=== PATIENT | male | born 1945 | race Caucasian/White ===

== ENCOUNTER 2017-12-27 09:17 | Day surgery (SDC) | payer MEDICARE, OTHER ==
[~2017-12-27] VITALS: Ht 170.2 cm; Wt 105.2 kg
[~2017-12-27 09:17] MED LIST: ASPI81CH PO; ATOR40TA PO; CARV25 PO; FENO54 PO; FURO20 PO; INSULANPEN SC; ROSU10TA PO; RXHYDACE PO; SITA50T2 PO; ZESTORETIC 20-121 EA PO; Zithromax250 MG PO
== END 2017-12-27 23:03 | disposition home or self-care (01) ==
LOC: ORSCMMR 09:17 → ORD 10:30 → ORSCMMR 23:03
PROVIDERS: Internal Medicine Gastroenterology
PROC: 0DBH8ZX Excision of Cecum, Via Natural or Artificial Opening Endoscopic, Diagnostic (ICD-10-PCS; principal; 2017-12-27 10:30)
PROC: 0DBM8ZX Excision of Descending Colon, Via Natural or Artificial Opening Endoscopic, Diagnostic (ICD-10-PCS; principal; 2017-12-27 10:30)
PROC: 0DBN8ZX Excision of Sigmoid Colon, Via Natural or Artificial Opening Endoscopic, Diagnostic (ICD-10-PCS; principal; 2017-12-27 10:30)
DX: K62.5 Hemorrhage of anus and rectum (principal); D12.4 Benign neoplasm of descending colon; D12.0 Benign neoplasm of cecum; D12.5 Benign neoplasm of sigmoid colon; K57.30 Diverticulosis of large intestine without perforation or abscess without bleeding; K21.9 Gastro-esophageal reflux disease without esophagitis; K63.89 Other specified diseases of intestine; Z86.010 Personal history of colon polyps; I25.10 Atherosclerotic heart disease of native coronary artery without angina pectoris; E11.9 Type 2 diabetes mellitus without complications; Z87.891 Personal history of nicotine dependence; Z79.82 Long term (current) use of aspirin; Z79.899 Other long term (current) drug therapy
CPT/HCPCS: 82947; J7120

== ENCOUNTER 2018-02-06 06:00 | Day surgery (SDC) | payer MEDICARE, OTHER ==
[~2018-02-06] VITALS: Ht 175.3 cm; Wt 105.0 kg
[~2018-02-06 06:00] MED LIST changes: +AMLO5 PO; +FISH OIL 1,0001 EAC1 PO; +NITR.4SL SL; +NITR.8TP TOP; +OMEPRAZOLE MAGN20 MG PO; +RANO500T PO
[2018-02-07] MEDS ORDERED: CLOP75 PO (11:54)
[2018-02-07] MEDS ORDERED: ASPI325 PO (11:54)
[2018-02-07] MEDS ORDERED: Protonix40 MG PO (11:55)
== END 2018-02-07 12:31 | disposition home or self-care (01) ==
LOC: MHTC 06:00 → PCU 13:20 → MHTC 02-07 12:31
PROC: B2111ZZ Fluoroscopy of Multiple Coronary Arteries using Low Osmolar Contrast (ICD-10-PCS; principal; 2018-02-06)
PROC: 027034Z Dilation of Coronary Artery, One Artery with Drug-eluting Intraluminal Device, Percutaneous Approach (ICD-10-PCS; principal; 2018-02-06)
PROC: 02703DZ Dilation of Coronary Artery, One Artery with Intraluminal Device, Percutaneous Approach (ICD-10-PCS; principal; 2018-02-06)
PROC: 4A023N7 Measurement of Cardiac Sampling and Pressure, Left Heart, Percutaneous Approach (ICD-10-PCS; principal; 2018-02-06)
DX: I25.119 Atherosclerotic heart disease of native coronary artery with unspecified angina pectoris (principal); E11.9 Type 2 diabetes mellitus without complications; Z79.4 Long term (current) use of insulin; I10 Essential (primary) hypertension; E78.00 Pure hypercholesterolemia, unspecified; E66.9 Obesity, unspecified; Z95.1 Presence of aortocoronary bypass graft
CPT/HCPCS: 82947; 85347; 92928; 92978; 99152; 99153; C1725; C1753; C1760; C1769; C1874; C1876; C1887; C9600; J1644; J2250; J3010; J7030; Q9967

== ENCOUNTER 2019-03-25 07:37 | Day surgery (SDC) | payer MEDICARE, OTHER ==
[~2019-03-25] VITALS: Ht 162 cm; Wt 106.4 kg
[~2019-03-25 07:37] MED LIST changes: +ASPI325 PO; +CLOP75 PO; +Protonix40 MG PO
[2019-03-25] MEDS ORDERED: Nitroglycerin1 EACH TOP (08:15)
[2019-03-25] MEDS ORDERED: LISI5 PO (08:17)
[2019-03-25] MEDS ORDERED: RANO500T PO (08:23)
--- NOTE | 2019-03-25 08:41 | NUR ---
03/25/19 0841 Yesika Torres History, Chart, Medications and Allergies reviewed before start of procedure. Patient confirms NPO status and agrees with scheduled surgery. PATIENT DETERMINED TO BE ASA APPROPRIATE FOR PROPOFOL SEDATION PRIOR TO START OF PROCEDURE BY DR. HILLMAN. 3-LEAD EKG REVIEWED WITH PHYSICIAN PRIOR TO START OF PROCEDURE. MONITOR INTACT WITH CONTINUOUS PULSE OXIMETRY AND INTERMITTENT BP.
--- NOTE | 2019-03-25 09:08 | NUR ---
PT TO STEP. DENIES C/O PAIN OR NAUSEA. WATER GIVEN TO PT.
--- NOTE | 2019-03-25 09:21 | NUR ---
WRITTEN AND VERBAL D/C INSTRUCTIONS GIVEN TO PT WITH STATED UNDERSTANDING.
== END 2019-03-25 09:47 | disposition home or self-care (01) ==
LOC: ORSCMMR 07:37 → ORD 08:30 → ORSCMMR 08:30
PROVIDERS: Internal Medicine Gastroenterology
PROC: 0DB68ZX Excision of Stomach, Via Natural or Artificial Opening Endoscopic, Diagnostic (ICD-10-PCS; principal; 2019-03-25 08:30)
PROC: 0DB98ZX Excision of Duodenum, Via Natural or Artificial Opening Endoscopic, Diagnostic (ICD-10-PCS; principal; 2019-03-25 08:30)
DX: K92.1 Melena (principal); K29.70 Gastritis, unspecified, without bleeding; K44.9 Diaphragmatic hernia without obstruction or gangrene; D64.9 Anemia, unspecified; E11.9 Type 2 diabetes mellitus without complications; I25.10 Atherosclerotic heart disease of native coronary artery without angina pectoris; Z87.891 Personal history of nicotine dependence; Z79.01 Long term (current) use of anticoagulants; Z79.899 Other long term (current) drug therapy
CPT/HCPCS: 82947; 88305; 88342; J2704; J7120

== ENCOUNTER → 2022-01-18 | Outpatient (CLI) | payer MEDICARE, OTHER ==
[~2022-01-18] MED LIST changes: +LISI5 PO; +Nitroglycerin1 EACH TOP
== END | disposition home or self-care (01) ==
LOC: LAB SHORT 14:49
DX: C44.519 Basal cell carcinoma of skin of other part of trunk (principal)
CPT/HCPCS: 88305

== ENCOUNTER 2022-07-26 07:12 | Day surgery (SDC) | payer MEDICARE, OTHER ==
[~2022-07-26] VITALS: Ht 170.2 cm; Wt 99.8 kg
[2022-07-26] VITALS (12 sets, daily range): BP systolic 106–160; BP diastolic 55–130
--- NOTE | 2022-07-26 07:56 | NUR ---
Ambulatory in Day Surgery History, Chart, Medications and Allergies reviewed before start of procedure. Pre-Op teaching done. Pt verbalizes understanding. Patient States Post-Procedure ride home has been arranged.
--- NOTE | 2022-07-26 08:11 | NUR ---
07/26/22 0811 Sandra Tiwari HISTORY, CHART, MEDICATIONS AND ALLERGIES REVIEWED BEFORE START OF PROCEDURE. PATIENT CONFIRMS NPO STATUS AND AGREES WITH SCHEDULED PROCEDURE. 3-LEAD EKG REVIEWED WITH PHYSICIAN PRIOR TO START OF PROCEDURE. MONITOR INTACT WITH CONTINUOUS PULSE OXIMETRY,CAPNOGRAPHY, 3-LEAD EKG, INTERMITTENT BP. SUPPLEMENTAL O2 TO BE TITRATED THROUGHOUT PROCEDURE TO MAINTAIN O2 SATURATION ABOVE 90%. PATIENT DETERMINED TO BE ASA APPROPRIATE FOR PROPOFOL SEDATION PRIOR TO START OF PROCEDURE BY .
--- NOTE | 2022-07-26 08:31 | NUR ---
Discharge instructions reviewed with patient. Patient verbalizes understanding. Copy given to patient to take home. Discharged via wheelchair to private car for ride home. PROCEDURE ABORTED DUE TO INADEQUATE PREP; MD CONSULTED WITH PT, PT CALM & UNDERSTANDING.
== END 2022-07-26 08:47 | disposition home or self-care (01) ==
LOC: ORSCMMR 07:12 → ORD 08:30 → ORSCMMR 08:30
PROVIDERS: Internal Medicine Gastroenterology
PROC: 0DJD8ZZ Inspection of Lower Intestinal Tract, Via Natural or Artificial Opening Endoscopic (ICD-10-PCS; principal; 2022-07-26 08:30)
DX: K62.5 Hemorrhage of anus and rectum (principal); Z86.010 Personal history of colon polyps; K57.30 Diverticulosis of large intestine without perforation or abscess without bleeding; I25.10 Atherosclerotic heart disease of native coronary artery without angina pectoris; I10 Essential (primary) hypertension; E11.9 Type 2 diabetes mellitus without complications; Z87.891 Personal history of nicotine dependence; Z79.02 Long term (current) use of antithrombotics/antiplatelets; Z79.4 Long term (current) use of insulin; Z79.899 Other long term (current) drug therapy
CPT/HCPCS: 82947; J2704; J7120

== ENCOUNTER 2022-08-30 08:36 | Day surgery (SDC) | payer MEDICARE, OTHER ==
[2022-08-30] VITALS (23 sets, daily range): BP systolic 106–175; BP diastolic 60–91
[~2022-08-30] VITALS: Ht 175.3 cm; Wt 97.8 kg
[2022-08-30] MEDS ORDERED: CLOP75 PO ×2 (09:28→09:29)
--- NOTE | 2022-08-30 09:52 | NUR ---
Ambulatory in Day SurgeryBair Paws warming gown applied. History, Chart, Medications and Allergies reviewed before start of procedure.Lungs clear T/O to Auscultation. Patient confirms NPO status and agrees with scheduled surgery. Pre-Op teaching done. Pt verbalizes understanding. Patient states colon prep results clear. Patient States Post-Procedure ride home has been arranged.
--- NOTE | 2022-08-30 09:55 | NUR ---
08/30/22 0955 Anshul Johnson HISTORY, CHART, MEDICATIONS AND ALLERGIES REVIEWED BEFORE START OF PROCEDURE. PATIENT CONFIRMS NPO STATUS AND AGREES WITH SCHEDULED PROCEDURE. 3-LEAD EKG REVIEWED WITH PHYSICIAN PRIOR TO START OF PROCEDURE. MONITOR INTACT WITH CONTINUOUS PULSE OXIMETRY,CAPNOGRAPHY, 3-LEAD EKG, INTERMITTENT BP. SUPPLEMENTAL O2 TO BE TITRATED THROUGHOUT PROCEDURE TO MAINTAIN O2 SATURATION ABOVE 90%. PATIENT DETERMINED TO BE ASA APPROPRIATE FOR PROPOFOL SEDATION PRIOR TO START OF PROCEDURE BY DR. HILLMAN.
--- NOTE | 2022-08-30 10:39 | NUR ---
PT UP INBED TOLERING PO FLUIDS. REPORT RECIEVED. VSS ON ROOM AIR. DR HILLMAN AT BEDSIDE
--- NOTE | 2022-08-30 11:00 | NUR ---
Patient up to Ambulate independently. Gait steady. Discharge instructions reviewed with patient. Patient verbalizes understanding. Copy given to patient to take home. Discharged via wheelchair to private car for ride home.
== END 2022-08-30 11:03 | disposition home or self-care (01) ==
LOC: ORSCMMR 08:36 → ORD 09:30 → ORSCMMR 09:30
PROVIDERS: Internal Medicine Gastroenterology
PROC: 0DBH8ZX Excision of Cecum, Via Natural or Artificial Opening Endoscopic, Diagnostic (ICD-10-PCS; principal; 2022-08-30 09:30)
PROC: 0DBK8ZX Excision of Ascending Colon, Via Natural or Artificial Opening Endoscopic, Diagnostic (ICD-10-PCS; principal; 2022-08-30 09:30)
PROC: 0DBL8ZX Excision of Transverse Colon, Via Natural or Artificial Opening Endoscopic, Diagnostic (ICD-10-PCS; principal; 2022-08-30 09:30)
DX: K62.5 Hemorrhage of anus and rectum (principal); Z86.010 Personal history of colon polyps; D12.3 Benign neoplasm of transverse colon; D12.2 Benign neoplasm of ascending colon; K63.5 Polyp of colon; K57.30 Diverticulosis of large intestine without perforation or abscess without bleeding; E11.9 Type 2 diabetes mellitus without complications; I25.10 Atherosclerotic heart disease of native coronary artery without angina pectoris; Z79.899 Other long term (current) drug therapy; Z79.02 Long term (current) use of antithrombotics/antiplatelets; Z79.4 Long term (current) use of insulin; Z87.891 Personal history of nicotine dependence; E66.9 Obesity, unspecified; Z68.35 Body mass index [BMI] 35.0-35.9, adult
CPT/HCPCS: 82947; 88305; J2704; J7120

== ENCOUNTER → 2023-01-19 | Outpatient (CLI) | payer MEDICARE, OTHER | END | disposition home or self-care (01) | LOC: LAB SHORT 14:26 → LAB 14:26 | DX: C44.41 Basal cell carcinoma of skin of scalp and neck (principal) | CPT/HCPCS: 88305 ==

== ENCOUNTER 2023-11-27 07:39 | Day surgery (SDC) | payer MEDICARE, OTHER ==
[2023-11-27] VITALS (17 sets, daily range): BP systolic 113–186; BP diastolic 57–91
[~2023-11-27] VITALS: Ht 167.6 cm; Wt 94.0 kg
[~2023-11-27 07:39] MED LIST changes: +INSULANI SC; +Lactated Ringer's 1,000 ML IV SCH
--- NOTE | 2023-11-27 08:12 | NUR ---
History, Chart, Medications and Allergies reviewed before start of procedure. Patient confirms NPO status and agrees with scheduled surgery. Patient states colon prep results clear. Lungs clear T/O to Auscultation. Patient States Post-Procedure ride home has been arranged. Pre-Op teaching done. Pt verbalizes understanding.
[2023-11-27] MEDS ORDERED: propofoL 40 ML IV ONE (08:37)
--- NOTE | 2023-11-27 08:47 | NUR ---
11/27/23 0847 Yesika Torres CONFIRMED AND REVIEWED H&P, MEDCICATIONS, ALLERGIES, MEDICAL HISTORY, RESPIRATORY HISTORY, VITAL SIGNS, 3-LEAD EKG, CONSENTS, AND PHYSICIAN ORDERS. PATIENT CONFIRMS NPO STATUS AND AGREES WITH SCHEDULED PROCEDURE. MONITOR INTACT WITH CONTINUOUS PULSE OXIMETRY, CAPNOGRAPHY, 3-LEAD EKG, INTERMITTENT BP. SUPPLEMENTAL O2 TO BE TITRATED THROUGHOUT PROCEDURE TO MAINTAIN O2 SATURATION ABOVE 90%. PATIENT DETERMINED TO BE ASA APPROPRIATE FOR PROPOFOL SEDATION PRIOR TO START OF PROCEDURE BY DR. HILLMAN. MALLAMPATI CLASS 2 AIRWAY: COMPLETE VISUALIZATION OF THE UVULA.
--- NOTE | 2023-11-27 09:42 | NUR ---
Discharge instructions reviewed with patient. Patient verbalizes understanding. Copy given to patient to take home. Patient States Post-Procedure ride home has been arranged. Discharged via wheelchair to private car for ride home.
== END 2023-11-27 09:40 | disposition home or self-care (01) ==
LOC: ORSCMMR 07:39 → ORD 08:30 → ORSCMMR 08:30
PROVIDERS: Internal Medicine Gastroenterology
PROC: 0DBK8ZX Excision of Ascending Colon, Via Natural or Artificial Opening Endoscopic, Diagnostic (ICD-10-PCS; principal; 2023-11-27 08:30)
PROC: 0DBL8ZX Excision of Transverse Colon, Via Natural or Artificial Opening Endoscopic, Diagnostic (ICD-10-PCS; principal; 2023-11-27 08:30)
PROC: 0DBM8ZX Excision of Descending Colon, Via Natural or Artificial Opening Endoscopic, Diagnostic (ICD-10-PCS; principal; 2023-11-27 08:30)
DX: D12.2 Benign neoplasm of ascending colon (principal); D12.3 Benign neoplasm of transverse colon; D12.4 Benign neoplasm of descending colon; K57.30 Diverticulosis of large intestine without perforation or abscess without bleeding; K64.8 Other hemorrhoids; I25.10 Atherosclerotic heart disease of native coronary artery without angina pectoris; E11.9 Type 2 diabetes mellitus without complications; Z86.0101 Personal history of adenomatous and serrated colon polyps; Z86.16 Personal history of COVID-19; Z79.02 Long term (current) use of antithrombotics/antiplatelets; Z79.4 Long term (current) use of insulin; Z79.899 Other long term (current) drug therapy; Z87.891 Personal history of nicotine dependence
CPT/HCPCS: 82947; 88305; J2704; J7120

== ENCOUNTER 2024-05-10 07:20 | Day surgery (SDC) | payer MEDICARE, OTHER ==
[~2024-05-10] VITALS: Ht 170.2 cm; Wt 97.3 kg
[~2024-05-10 07:20] MED LIST changes: -Lactated Ringer's 1,000 ML IV SCH
[2024-05-10] MEDS ORDERED: CARVEDILOL25 M9 (07:28)
[2024-05-10] MEDS ORDERED: CLOP75 (07:29)
[2024-05-10] MEDS ORDERED: ASCO500 (07:31)
[2024-05-10] MEDS ORDERED: ATOR40TA (07:31)
[2024-05-10] MEDS ORDERED: MULVITA (07:31)
[2024-05-10] MEDS ORDERED: propofoL 50 ML IV ONE ×2 (07:37→09:02)
[2024-05-10] MEDS ORDERED: Lactated Ringer's 1,000 ML IV ONE ×2 (07:37→07:55)
--- NOTE | 2024-05-10 08:00 | NUR ---
05/10/24 0800 Shi Wheeler DRAWING CBD PER MD HILLMAN PRIOR TO PROCEDURE.
[2024-05-10 08:31] LABS: BASOPHILS ABSOLUTE AUTO 0.02 K/mm3 (0.00-0.23); BASOPHILS PERCENT AUTO 0 % (0-2); EOSINOPHILS ABSOLUTE AUTO 0.08 K/mm3 (0.00-0.68); EOSINOPHILS PERCENT AUTO 2 % (0-6); Hematocrit 37.6 % (37.0-53.0); Hemoglobin 12.8 g/dL (13.5-17.5); IMMATURE GRAN ABSOLUTE AUTO 0.01 K/mm3 (0.00-0.10); IMMATURE GRAN PERCENT AUTO 0 % (0-1); LYMPHOCYTES ABSOLUTE AUTO 1.09 K/mm3 (0.84-5.20); LYMPHOCYTES PERCENT AUTO 21 % (21-46); MONOCYTES ABSOLUTE AUTO 0.47 K/mm3 (0.16-1.47); MONOCYTES PERCENT AUTO 9 % (4-13); Mean Corpuscular HGB 32.5 pg (26.0-34.0); Mean Corpuscular Volume 95 fL (80-100); Mean Platelet Volume 10.2 fL (9.1-12.4); NEUTROPHILS ABSOLUTE AUTO 3.65 K/mm3 (1.96-9.15); NEUTROPHILS PERCENT AUTO 69 % (41-73); Platelet Count 141 K/mm3 (150-400); RDW Coefficient Variation 13.2 % (11.7-14.2); RDW Standard Deviation 46.6 fL (35.1-46.3); Red Blood Cell Count 3.94 M/mm3 (4.30-5.90); White Blood Cell Count 5.32 K/mm3 (4.00-11.30)
[2024-05-10 10:29] VITALS: BP 119/76
--- NOTE | 2024-05-10 13:37 | NUR ---
05/10/24 201Sabina Vincent SPOKE TO PT REGARDING NOT TAKING HIS PLAVIX UNTIL HIS FOLLOW UP APPOINTMENT WITH . PT VERBALIZED UNDERSTANDING.
== END 2024-05-10 10:21 | disposition home or self-care (01) ==
LOC: ORSCSDS 07:20
PROVIDERS: Internal Medicine Gastroenterology
PROC: 0DBK8ZX Excision of Ascending Colon, Via Natural or Artificial Opening Endoscopic, Diagnostic (ICD-10-PCS; principal; 2024-05-10 08:00)
PROC: 0DBN8ZX Excision of Sigmoid Colon, Via Natural or Artificial Opening Endoscopic, Diagnostic (ICD-10-PCS; principal; 2024-05-10 08:00)
PROC: 0DBL8ZX Excision of Transverse Colon, Via Natural or Artificial Opening Endoscopic, Diagnostic (ICD-10-PCS; principal; 2024-05-10 08:00)
PROC: 0DBM8ZX Excision of Descending Colon, Via Natural or Artificial Opening Endoscopic, Diagnostic (ICD-10-PCS; principal; 2024-05-10 08:00)
DX: K62.5 Hemorrhage of anus and rectum (principal); K63.5 Polyp of colon; D12.3 Benign neoplasm of transverse colon; D12.4 Benign neoplasm of descending colon; D12.5 Benign neoplasm of sigmoid colon; K57.30 Diverticulosis of large intestine without perforation or abscess without bleeding; Z86.0100 Personal history of colon polyps, unspecified; I25.10 Atherosclerotic heart disease of native coronary artery without angina pectoris; Z95.1 Presence of aortocoronary bypass graft; E11.9 Type 2 diabetes mellitus without complications; Z79.02 Long term (current) use of antithrombotics/antiplatelets; Z79.899 Other long term (current) drug therapy; Z87.891 Personal history of nicotine dependence
CPT/HCPCS: 82947; 85025; 88305; J2704; J7120

== ENCOUNTER 2024-07-04 08:14 | Day surgery (SDC) | payer MEDICARE, OTHER ==
[~2024-07-04] VITALS: Ht 170.2 cm; Wt 96.9 kg
[~2024-07-04 08:14] MED LIST changes: +ASCO500; +ATOR40TA; +Balanced Salt Epinephrine Irrigation Solution 500 mL IR SCH; +CARVEDILOL25 M9; +CLOP75; +Diazepam 2 MG Tab PO PRN; +Lidocaine HCl/Pf 1% 5 ML VIAL XX SCH; +MULVITA; +Moxifloxacin HCL 0.5 MG/0.1 ML 0.4MLSYR LEFTEYE SCH; +Ondansetron 4 MG SoluTab MM PRN; +PHENYLEPHRINE\\TROPICAMIDE\\TETRACAINE OPHTHALMIC DILATING SOLN LEFTEYE PRN; +Povidone-Iodine 450 DROP/30 ML Solution LEFTEYE SCH; +Povidone-Iodine 450 DROP/30 ML Solution ONE; +Tetracaine HCl/Pf 0.5% Opth Soln 4 ml ONE; +Triamcinolone Inj Susp 40 MG / ML 1ML Vial INJ SCH; +Triamcinolone Inj Susp 40 MG / ML 1ML Vial ONE; +diazePAM 2 MG,diazePAM 5 MG PO SCH
[2024-07-04] MEDS ORDERED: Diazepam 2 MG Tab ONE (08:22)
[2024-07-04] MEDS ORDERED: Diazepam 5 MG Tab ONE (08:22)
--- NOTE | 2024-07-04 08:55 | NUR ---
07/04/24 0855 Deidra Bucio PT RATES ANXIETY 0/10 UPON ARRIVAL PT RATES ANXIETY 0/10 NOW
--- NOTE | 2024-07-04 09:34 | NUR ---
07/04/24 0934 Meg Benitez BP-143/68 P-64 SPO2-97% 10L BLOW BY O2
[2024-07-04 09:54] VITALS: BP 162/76
--- NOTE | 2024-07-04 09:54 | NUR ---
07/04/24 0954 Pema Barnett PT CALLING NEIGHBOR TO COME PICK HIM UP
[2024-07-10] MEDS ORDERED: PENVK250 PO (07:13)
[2024-07-10] MEDS ORDERED: AMOX500 PO (07:14)
== END 2024-07-04 10:07 | disposition home or self-care (01) ==
LOC: ORSCSDS 08:14
PROVIDERS: Ophthalmology
PROC: 08RK3JZ Replacement of Left Lens with Synthetic Substitute, Percutaneous Approach (ICD-10-PCS; principal; 2024-07-04 09:30)
DX: E11.36 Type 2 diabetes mellitus with diabetic cataract (principal); H25.813 Combined forms of age-related cataract, bilateral; I10 Essential (primary) hypertension; E78.00 Pure hypercholesterolemia, unspecified; Z79.84 Long term (current) use of oral hypoglycemic drugs; Z79.4 Long term (current) use of insulin; Z79.899 Other long term (current) drug therapy
CPT/HCPCS: A9270; J3301; V2632